=== PATIENT | female | born 1955 | race Caucasian/White ===

== ENCOUNTER 2017-10-16 12:46 | Day surgery (SDC) | payer MEDICAID ==
[~2017-10-16] VITALS: Ht 157.5 cm; Wt 86.4 kg
--- NOTE | ~2017-10-16 | OP ---
PATIENT NAME: ERNESTO ORDOÑEZ MEDICAL RECORD: [id number] :59 LOCATION:[facility] ADMISSION DATE: SURGEON: SAE TANG DO DATE OF OPERATION: 10/16/2017 PROCEDURE: Colonoscopy. INDICATIONS FOR PROCEDURE: Family history of colon cancer in father and colon cancer screening as well as a personal history of colon polyps. SCOPE: Olympus video pediatric colonoscope. MEDICATIONS: Propofol 450 mg IV per anesthesia. WITHDRAWAL TIME: 11 minutes. ESTIMATED BLOOD LOSS: None. COMPLICATIONS: None. FINDINGS: Informed consent was given. The patient was made comfortable with the above medication. After reaching an adequate level of sedation by slow IV push, the patient was placed on her left side. A digital rectal examination was performed and it was normal. The endoscope was then advanced under direct visualization through the rectum to the cecum with visualization of the appendiceal orifice and ileocecal valve. The scope was slowly withdrawn and mucosa was carefully examined. The prep quality was good. There were no polyps visualized on today's examination. There was jica-ve-sqerlntr diverticulosis involving all segments of the colon. There was no evidence of diverticulitis or bleeding. Retroflexion was performed in the rectum with a normal-appearing rectal wall. The endoscope was withdrawn from the patient. The patient tolerated the procedure well and there were no complications. IMPRESSION: 1. Moderate pandiverticulosis. 2. Otherwise, normal colonoscopy. PLAN AND RECOMMENDATIONS: 1. Discharge home when recovery parameters are met. 2. High-fiber diet. 3. Consider supplementing diet with Metamucil 1-2 tablespoons daily. 4. Continue current medications. 5. Recall colonoscopy in 5 years regarding personal history of polyps and family history of colon cancer in her father. TRANSINT:[id number] Voice Confirmation ID: [id number] DOCUMENT ID: [id number] OPERATIVE REPORT [id number] ERNESTO ORDOÑEZ SAE TANG DO at 0739 CC: [id number] DICTATION DATE: 10/16/17 161 DEVELOPMENTAL BEHAVIORAL PHYSICIAN: [id number] [facility] 10/16/17 [place] [address]
[2017-10-16 13:49] LABS: HEMATOCRIT 38.5 % (36.0-48.0); MCH 29.8 pg (26.0-34.0); MCHC 33.8 g/dL (31.0-37.0); MCV 88.3 fL (80.0-100.0); MEAN PLATELET VOLUME 8.6 fL (7.4-10.4); RBC 4.36 10x6/uL (4.00-5.40); RDW 12.6 % (11.5-14.5); WBC 4.1 10x3/uL (4.8-10.8)
[2017-10-16] MEDS ORDERED: LISINOPRIL-HCTZ1 T13 PO (13:56)
[2017-10-16] MEDS ORDERED: CELEXA20 MG PO (13:57)
[2017-10-16] MEDS ORDERED: PEPCID40 MG PO (13:57)
[2017-10-16 13:58] VITALS: BP 142/86; Ht 157.5 cm; Wt 86.4 kg
== END 2017-10-16 17:04 | disposition home or self-care (01) ==
LOC: D.OPS 12:46
PROVIDERS: Internal Medicine Gastroenterology
DX: Z86.010 Personal history of colon polyps (principal); I10 Essential (primary) hypertension; G47.30 Sleep apnea, unspecified; K21.9 Gastro-esophageal reflux disease without esophagitis; Z80.0 Family history of malignant neoplasm of digestive organs; Z01.812 Encounter for preprocedural laboratory examination

== ENCOUNTER → 2018-08-27 08:44 | Outpatient (CLI) | payer MEDICAID ==
[~2018-08-27 08:44] MED LIST: CELEXA20 MG PO; LISINOPRIL-HCTZ1 T13 PO; PEPCID40 MG PO
== END | disposition home or self-care (01) ==
LOC: D.MRI 08-22 11:30
DX: M54.5 Low back pain (principal)